=== PATIENT | female | born 1955 | race Caucasian/White ===

== ENCOUNTER 2023-01-07 11:11 | Emergency (ER) | payer MEDICARE ==
[~2023-01-07] VITALS: Ht 160 cm; Wt 49.9 kg
[2023-01-07 12:33] LABS: BASOPHILS % 0.2 % (0.0-1.0); EOSINOPHILS % 0.2 % (0.0-6.0); HEMATOCRIT 41.5 % (34.2-44.1); HEMOGLOBIN 13.2 g/dL (12.0-16.0); LYMPHOCYTES # (AUTO) 0.9 (1.0-3.2); LYMPHOCYTES % 5.5 % (18.0-39.1); MEAN CORPUSCULAR HEMOGLOBIN 28.9 pg (28-32); MEAN CORPUSCULAR HGB CONC 31.8 g/dL (31-35); MEAN CORPUSCULAR VOLUME 90.8 fL (81-99); MONOCYTES # (AUTO) 0.5 (0.2-0.8); MONOCYTES % 2.9 % (4.4-11.3); NEUTROPHILS # (AUTO) 15.2 (2.1-6.9); NEUTROPHILS % 90.8 % (38.7-80.0); PLATELET COUNT 214 x10e3/uL (140-360); RED BLOOD COUNT 4.57 x10e6/uL (3.6-5.1); RED CELL DISTRIBUTION WIDTH 14.4 % (11.7-14.4)
[2023-01-07] MEDS ORDERED: SODIUM CHLORIDE 0.9% 1000ML 1,000 ML IV SCH (12:45)
[2023-01-07 13:34] LABS: ALBUMIN 3.4 g/dL (3.5-5.0); ALBUMIN/GLOBULIN RATIO 1.2 (0.8-2.0); ANION GAP 14.4 mmol/L (8-16); CALCIUM 8.4 mg/dL (8.4-10.2); CREATININE, SERUM 0.84 mg/dL (0.57-1.11); POTASSIUM 3.4 mmol/L (3.5-5.1)
[2023-01-07] MEDS ORDERED: PREDNISONE20 MG PO (14:18)
== END 2023-01-07 14:45 | disposition home or self-care (01) ==
LOC: ER 11:32
DX: Z98.890 Other specified postprocedural states (principal); R09.02 Hypoxemia; J44.9 Chronic obstructive pulmonary disease, unspecified; R94.31 Abnormal electrocardiogram [ECG] [EKG]
CPT/HCPCS: 36415; 71045; 80053; 83880; 85025; 93005; 99284; J7030

== ENCOUNTER → 2023-01-11 | Outpatient (CLI) | payer MEDICARE ==
[~2023-01-11] MED LIST: PREDNISONE20 MG PO
== END ==
LOC: DX 10:52
PROVIDERS: ATTEND Internal Medicine Gastroenterology
DX: Q43.8 Other specified congenital malformations of intestine (principal)
CPT/HCPCS: 74280

== ENCOUNTER → 2025-01-13 | Outpatient (RCR) | payer MEDICARE ==
[~2025-01-13] MED LIST changes: +AIRSUPRA 90-810.7 GM; +ULTRAM 50MG50 MG PO
== END ==
LOC: RESP 12-21 14:36
PROVIDERS: ATTEND Family Medicine
DX: J44.9 Chronic obstructive pulmonary disease, unspecified (principal)
CPT/HCPCS: 94626 ×6; 94799; G0238 ×6

== ENCOUNTER → 2025-03-15 | Outpatient (RCR) | payer MEDICARE | LOC: RESP 02-15 18:00 | DX: J44.9 Chronic obstructive pulmonary disease, unspecified (principal) | CPT/HCPCS: 94626 ×9; G0238 ×9 ==

== ENCOUNTER 2025-04-14 15:00 | Outpatient (RCR) | payer MEDICARE | END 2025-04-15 | LOC: RESP 15:00 | PROVIDERS: ATTEND Family Medicine | DX: J44.9 Chronic obstructive pulmonary disease, unspecified (principal) | CPT/HCPCS: 94626 ×9; G0238 ×9 ==

== ENCOUNTER 2025-05-12 15:00 | Outpatient (RCR) | payer MEDICARE | END 2025-05-16 | LOC: RESP 15:00 | PROVIDERS: ATTEND Family Medicine | DX: J44.9 Chronic obstructive pulmonary disease, unspecified (principal) | CPT/HCPCS: 94626 ×7; 94799; G0238 ×7 ==